=== PATIENT | female | born 1955 | race Caucasian/White ===

== ENCOUNTER → 2021-05-02 | Outpatient (CLI) | payer MEDICARE, BC ==
--- NOTE | 2021-05-04 16:22 | RAD ---
INDICATION: 65 years of age asymptomatic female patient presents for screening mammography. TECHNIQUE: Full field craniocaudal and mediolateral oblique images of both breasts were obtained usi ng digital technique with tomosynthesis and also analyzed with computer-aided detection software. COMPARISON: Prior mammographic imaging dating back to 05/14/2019, 05/13/2016. BREAST COMPOSITION: Category C: The breast tissue is heterogeneously dense, which could obscure detec tion of small masses. FINDINGS: The parenchymal pattern appears stable. Benign calcifications are present. No suspicious masses, microcalcifications or architectural distortion is present to suggest malignanc y in either breast. The visualized axillae are unremarkable. IMPRESSION: No mammographic evidence of malignancy. RECOMMENDATION: Annual screening mammography is recommended, unless clinically indicated sooner based on symptoms or change in physical exam. BIRADS 2: BENIGN This study was interpreted with the benefit of Computerized Aided Detection (CAD). Patient information is entered into the reminder system with a target due date for the next screening mammogram. Mammography is the most sensitive method for finding small breast cancers, but it does not detect the m all and is not a substitute for careful clinical examination. A negative mammogram does not negate a clinically suspicious finding and should not result in delay in biopsying a clinically suspicious a bnormality. "Our facility is accredited by the [employer] Mammography Program." Electronically signed by: Tim Hollins MD (05/04/2021 4:20 PM) [id number]
== END ==
LOC: MAMMO 11:02
PROVIDERS: ATTEND Family Medicine
DX: Z12.31 Encounter for screening mammogram for malignant neoplasm of breast (principal); R92.1 Mammographic calcification found on diagnostic imaging of breast
CPT/HCPCS: 77063; 77067

== ENCOUNTER → 2021-06-20 | Outpatient (CLI) | payer MEDICARE, BC ==
[~2021-06-20] MED LIST: IOHEXOL 240 MG/ML 50ML VIAL. ONE
[2021-06-20] MEDS: IOHEXOL 300 MG/ML 75 ML VIAL. IV ONE (08:30)
--- NOTE | 2021-06-20 11:04 | RAD ---
EXAM: CT OF THE CHEST, ABDOMEN AND PELVIS WITH CONTRAST. HISTORY: Colon cancer, weight loss. TECHNIQUE: Computed tomography of the chest, abdomen and pelvis was performed after the intravenous a dministration of iodinated contrast. One or more of the following individualized dose reduction techn iques were utilized for this examination: 1. Automated exposure control. 2. Adjustment of the mA and/or kV according to patient size. 3. Use of iterative reconstruction technique. COMPARISON: 12/12/2005 FINDINGS: Bone windows reveal no suspicious lesions. There are no pathologically enlarged mediastinal or axillary lymph nodes. There is no pleural or ramesh cardial effusion. The heart is not enlarged. There is moderate centrilobular emphysema. There are no suspicious nodules. Small foci of hypoattenuation within hepatic segment 8 measure 7 mm on image 24 and 9 mm on image 21. The pancreatic duct is dilated to the level of the ampulla, measuring 4.5 mm. No cause for distal obs truction is seen. The common duct is not dilated. No pancreatic parenchymal lesions are seen. There is a calcified granuloma in the spleen. The gallbladder, kidneys and adrenal glands are unremar kable. There are no pathologically enlarged lymph nodes. Changes of partial right colectomy and ileocolonic anastomosis are noted. There is no ascites. There are no peritoneal or omental lesions. There is no small bowel obstruction. IMPRESSION: 1. Small hypoattenuating foci within the liver are too small to characterize. Comparison with more re cent examinations of the abdomen and is recommended to confirm stability. If none are available, MRI could further exclude small metastases. 2. Pancreatic ductal dilatation to the level of the ampulla. No cause for distal obstruction is seen. Again, comparison with older studies is recommended. ERCP could further assess for ampullary lesion if there is persistent concern. 3. Moderate centrilobular emphysema. Electronically signed by: Shilpi Mendez MD (06/20/2021 11:01 AM) [id number]
== END ==
LOC: CT 07:58
PROVIDERS: ATTEND Internal Medicine
DX: J43.2 Centrilobular emphysema (principal); K76.89 Other specified diseases of liver; K83.8 Other specified diseases of biliary tract; D73.89 Other diseases of spleen; R63.4 Abnormal weight loss; Z90.49 Acquired absence of other specified parts of digestive tract
CPT/HCPCS: 71260; 74177; Q9967